=== PATIENT | male | born 1980 | race American Indian/Alaskan Native ===

== ENCOUNTER 2020-11-22 12:38 | Emergency (ER) | payer SELFPAY ==
[2020-11-22] MEDS ORDERED: predniSONE 20 MG TAB PO ONE (14:21)
[2020-11-22] MEDS ORDERED: ACETAMINOPHEN 325 MG TAB PO ONE (14:21)
--- NOTE | 2020-11-22 14:21 | Emergency Department Report ---
- General Chief Complaint: Upper Respiratory Infection Stated Complaint: SOB Time Seen by Provider: 11/22/20 14:05 Source: patient Mode of arrival: Ambulatory Limitations: No Limitations - History of Present Illness Initial Comments: 40-year-old male who reports a history of chronic peripheral edema presents to the ER today with complaints of a 1 week history of URI symptoms including cough and shortness of breath. Patient states that he has been having a lot of sinus pressure and sinus drainage as well as productive cough, green rhinorrhea and nasal congestion. He states that yesterday he noted streaks of blood mixed with the phlegm but this has since resolved. He reports shortness of breath on exertion, intermittent wheezing, fatigue and intermittent diaphoresis. He denies any apparent fever or chills at home. He denies any apparent ill contacts, recent travel or known COVID-19 contacts. He did not get his COVID-19 vaccine, Pfizer, in August 2020. He does admit to tobacco use. He denies any illicit drug use or alcohol abuse. He reports no other symptoms at this time. MD Complaint: cough, rhinorrhea, nasal congestion, sinus pain -: Gradual, week(s) (1) - Related Data Previous Rx's Medication Instructions Recorded Last Taken Type Albuterol Mdi (or & Nicu Only) 2 puff IH QID PRN #8.5 gram 11/22/20 Unknown Rx [ProAir HFA Inhaler] Amoxicillin/Potassium Clav 1 each PO BID #14 tablet 11/22/20 Unknown Rx [Augmentin 875-125 Tablet] Cetirizine HCl [ZyrTEC 10mg cap] 10 mg PO DAILY #30 capsule 11/22/20 Unknown Rx Fluticasone [Flonase] 2 spray NS QDAY #1 bottle 11/22/20 Unknown Rx predniSONE [Deltasone] 60 mg PO DAILY #12 tablet 11/22/20 Unknown Rx Allergies Allergy/AdvReac Type Severity Reaction Status Date / Time No Known Allergies Allergy Verified 11/22/20 13:59 ED Review of Systems ROS: Stated complaint: SOB Other details as noted in HPI Comment: All other systems reviewed and negative Constitutional: diaphoresis, malaise ENT: congestion, other (Green rhinorrhea). denies: ear pain, throat pain, dental pain, hearing loss, epistaxis Respiratory: cough, shortness of breath, wheezing Cardiovascular: denies: chest pain, palpitations, dyspnea on exertion, edema, syncope, paroxysmal nocturnal dyspnea Gastrointestinal: denies: abdominal pain, nausea, diarrhea, constipation, hematemesis, melena, hematochezia Genitourinary: denies: urgency, dysuria, frequency, hematuria, discharge, testicular pain, testicular mass Musculoskeletal: denies: back pain, joint swelling, arthralgia, myalgia Skin: denies: rash, lesions, change in color, change in hair/nails, pruritus Neurological: denies: headache, weakness, numbness, paresthesias, confusion, abnormal gait, vertigo Psychiatric: denies: anxiety, depression, auditory hallucinations, visual hallucinations, homicidal thoughts, suicidal thoughts Hematological/Lymphatic: denies: easy bleeding, easy bruising, swollen glands ED Past Medical Hx - Past Medical History Previous Medical History?: No - Surgical History Past Surgical History?: No - Medications Home Medications: Home Medications Medication Instructions Recorded Confirmed Last Taken Type Albuterol Mdi (or & Nicu Only) 2 puff IH QID PRN #8.5 gram 11/22/20 Unknown Rx [ProAir HFA Inhaler] Amoxicillin/Potassium Clav 1 each PO BID #14 tablet 11/22/20 Unknown Rx [Augmentin 875-125 Tablet] Cetirizine HCl [ZyrTEC 10mg cap] 10 mg PO DAILY #30 capsule 11/22/20 Unknown Rx Fluticasone [Flonase] 2 spray NS QDAY #1 bottle 11/22/20 Unknown Rx predniSONE [Deltasone] 60 mg PO DAILY #12 tablet 11/22/20 Unknown Rx ED Physical Exam - General Limitations: No Limitations General appearance: alert, in no apparent distress, obese - Head Head exam: Present: atraumatic, normocephalic, normal inspection - Eye Eye exam: Present: normal appearance, PERRL, EOMI Pupils: Present: normal accommodation - ENT ENT exam: Present: normal exam - Neck Neck exam: Present: normal inspection, full ROM. Absent: meningismus - Respiratory Respiratory exam: Present: normal lung sounds bilaterally, wheezes (Faint wheezing noted in the upper lung colon). Absent: respiratory distress, rales, rhonchi, stridor, chest wall tenderness - Cardiovascular Cardiovascular Exam: Present: regular rate, normal rhythm, normal heart sounds - GI/Abdominal GI/Abdominal exam: Present: soft. Absent: distended, tenderness, guarding, rebound - Neurological Exam Neurological exam: Present: alert, oriented X3, CN II-XII intact, normal gait - Psychiatric Psychiatric exam: Present: normal affect, normal mood - Skin Skin exam: Present: intact ED Course Vital Signs 11/22/20 11/22/20 13:59 15:02 Temperature 98.3 F 98.4 F Pulse Rate 103 H 99 H Respiratory 16 18 Rate Blood Pressure 127/89 Blood Pressure 131/88 [Left] O2 Sat by Pulse 98 97 Oximetry ED Medical Decision Making - Radiology Data Radiology results: report reviewed Patient: GLEN EPPS MR#: [id number] : 1980 Acct:[id number] Age/Sex: 40 / M ADM Date: 11/22/20 Loc: ED Attending Dr: Ordering Physician: JEANNETTE GARCÍA Date of Service: 11/22/20 Procedure(s): XR chest routine 2V Accession Number(s): [id number] cc: JEANNETTE GARCÍA Fluoro Time In Minutes: CHEST 2 VIEWS INDICATION / CLINICAL INFORMATION: Cough/wheezing. COMPARISON: None available. FINDINGS: SUPPORT DEVICES: None. HEART / MEDIASTINUM: No significant abnormality. LUNGS / PLEURA: No significant pulmonary or pleural abnormality. No pneumothorax. ADDITIONAL FINDINGS: No significant additional findings. IMPRESSION: 1. No acute findings. Signer Name: Melecio Nieto DO Signed: 11/22/2020 2:47 PM Workstation Name: [id number] Transcribed By: NS Dictated By: MELECIO NIETO DO Electronically Authenticated By: MELECIO NIETO DO Signed Date/Time: 11/22/201446 DD/ 46 TD/TT: - Medical Decision Making 40-year-old male who reports a history of chronic peripheral edema presents to the ER today with complaints of a 1 week history of URI symptoms including cough and shortness of breath. Patient states that he has been having a lot of sinus pressure and sinus drainage as well as productive cough, green rhinorrhea and nasal congestion. He states that yesterday he noted streaks of blood mixed with the phlegm but this has since resolved. He reports shortness of breath on exertion, intermittent wheezing, fatigue and intermittent diaphoresis. He denies any apparent fever or chills at home. He denies any apparent ill contac ts, recent travel or known COVID-19 contacts. He did not get his COVID-19 vaccine, Pfizer, in August 2020. He does admit to tobacco use. He denies any illicit drug use or alcohol abuse. He reports no other symptoms at this time 1524; Chest x-ray shows nothing acute. Patient currently sitting comfortably in the chair, is not in any acute pain or respiratory distress. Is not toxic or ill-appearing. He is neurologically intact with a normal gait. Patient was ambulated by me while monitoring is oxygen on room air and he maintaining O2 sat above 95%. He did not appear to be in any distress at the time of ambulating nor did he express any complaints at the time that he was being ambulated. Suspect that patient has an acute bacterial sinus infection with acute bronchitis. I Still recommend that he get an outpatient COVID-19 test to rule it out. He was given a list of facilities that he can go to to get the test done. Discussed chest x-ray results, suspected diagnosis and treatment plan with patient. Patient expressed understanding of all instructions and agree with plan. Patient was stable at time of discharge. Critical care attestation.: If time is entered above; I have spent that time in minutes in the direct care of this critically ill patient, excluding procedure time. ED Disposition Clinical Impression: Acute bacterial sinusitis, Acute bronchitis Disposition: 01 HOME / SELF CARE / HOMELESS Is pt being admited?: No Does the pt Need Aspirin: No Condition: Stable Instructions: Sinusitis, Adult, [id number], Acute Bronchitis, Adult, [id number], Acute Bronchitis (ED) Additional Instructions: Recommend that you take the Augmentin as prescribed to completion. Use the Flonase, and take the Zyrtec as prescribed. I recommend that you take the prednisone and use the albuterol MDI as prescribed to help with wheezing and shortness of breath. I also do recommend that you get an outpatient COVID-19 test. In the meantime I do recommend that you quarantine at home until you get the results of your tests. Drink lots of fluids. I do recommend that you try to stop smoking. Take a multivitamin daily which contains vitamin C, zinc and vitamin D. Follow-up closely with your PCP. Return to the ER if your symptoms changes or worsens in any way. Prescriptions: Amoxicillin/Potassium Clav [Augmentin 875-125 Tablet] 1 each PO BID #14 tablet predniSONE [Deltasone] 60 mg PO DAILY #12 tablet Fluticasone [Flonase] 2 spray NS QDAY #1 bottle Albuterol Mdi (or & Nicu Only) [ProAir HFA Inhaler] 2 puff IH QID PRN #8.5 gram PRN Reason: Shortness Of Breath Cetirizine HCl [ZyrTEC 10mg cap] 10 mg PO DAILY #30 capsule Referrals: [facility] [Provider Group] - 3-5 Days Forms: Work/School Release Form(ED) Time of Disposition: 15:18 Print Language: VIETNAMESE
--- NOTE | 2020-11-22 14:52 | XRay Report ---
CHEST 2 VIEWS INDICATION / CLINICAL INFORMATION: Cough/wheezing. COMPARISON: None available. FINDINGS: SUPPORT DEVICES: None. HEART / MEDIASTINUM: No significant abnormality. LUNGS / PLEURA: No significant pulmonary or pleural abnormality. No pneumothorax. ADDITIONAL FINDINGS: No significant additional findings. IMPRESSION: 1. No acute findings. Signer Name: Melecio Shaver DO Signed: 11/22/2020 2:47 PM Workstation Name: [id number]
[2020-11-22 15:07] VITALS: BP 127/89
== END 2020-11-22 15:24 | disposition home or self-care (01) ==
LOC: ED 12:38
DX: J01.90 Acute sinusitis, unspecified (principal); B96.89 Other specified bacterial agents as the cause of diseases classified elsewhere; J20.9 Acute bronchitis, unspecified; Z79.899 Other long term (current) drug therapy
CPT/HCPCS: 71046; 99283; J7512